=== PATIENT | female | born 1950 | race Two or more races ===

== ENCOUNTER 2021-11-27 17:54 | Emergency (ER) | payer OTHER ==
[~2021-11-27] VITALS: Ht 157.5 cm; Wt 68.0 kg
[2021-11-27] MEDS ORDERED: COZAAR25 MG PO (18:12)
== END 2021-11-28 00:23 | disposition home or self-care (01) ==
LOC: ER 17:54
DX: K29.60 Other gastritis without bleeding (principal); I10 Essential (primary) hypertension; Z20.822 Contact with and (suspected) exposure to COVID-19